=== PATIENT | female | born 1970 | race Caucasian/White ===

== ENCOUNTER 2019-04-25 06:10 | Day surgery (SDC) | payer OTHER ==
[2019-04-24 14:05] LABS: HEMATOCRIT 35.4 % (36.0-48.0); MCHC 33.9 g/dL (31.0-37.0); MCV 85.5 fL (80.0-100.0); MEAN PLATELET VOLUME 10.1 fL (7.4-10.4); RBC 4.14 10x6/uL (4.00-5.40); RDW 12.9 % (11.5-14.5); WBC 4.5 10x3/uL (4.8-10.8)
[2019-04-24 14:22] LABS: CALC OSMOLALITY 281 mosm/kg (275-300); CALCIUM 8.7 mg/dL (8.5-10.1); CARBON DIOXIDE 26.9 mmol/L (21.0-32.0); CHLORIDE - SERUM 105 mmol/L (98-107); CREATININE - SERUM 0.6 mg/dL (0.6-1.3); GLUCOSE 91 mg/dL (74-106); SODIUM 140 mmol/L (136-145); UREA NITROGEN 22 mg/dL (7-18); eGFR NON AFRICAN AMERICAN > 90 mL/min (90-120)
[~2019-04-25] VITALS: Ht 165.1 cm; Wt 58.1 kg
[~2019-04-25 06:10] MED LIST: ALLEGRA D PO; AMBIEN10 MG PO; METFORMIN HCL500 M1 PO; MOBIC7.5 MG PO; NP THYROID30 MG PO; ULTRAM50 MG PO; [UNRECOGNIZED DRUG - OTHER] PO
[2019-04-25 06:45] VITALS: BP 116/75; Ht 165.1 cm; Wt 58.1 kg
[2019-04-25] MEDS ORDERED: HYDROCODON-ACE1 EAC7 PO (11:15)
== END 2019-04-25 11:50 | disposition home or self-care (01) ==
LOC: D.OPS 06:10 → D.PAN 08:30 → D.OPS 11:00
PROVIDERS: Anesthesiology; ATTEND Podiatrist Foot & Ankle Surgery
DX: M72.2 Plantar fascial fibromatosis (principal)

== ENCOUNTER 2019-09-04 05:00 | Day surgery (SDC) | payer OTHER ==
[2019-09-01 10:48] LABS: BASOPHILS 0.2 % (0-2); EOSINOPHILS 2.2 % (0-7); HEMATOCRIT 45.6 % (36.0-48.0); HEMOGLOBIN 15.3 g/dL (12-16); IMMATURE GRANULOCYTES 0.2 % (0-5); LYMPHOCYTES 26.3 % (15-50); MCH 29.6 pg (26.0-34.0); MCHC 33.6 g/dL (31.0-37.0); MCV 88.2 fL (80.0-100.0); MEAN PLATELET VOLUME 10.4 fL (7.4-10.4); MONOCYTES 5.3 % (2-11); NEUTROPHILS 65.8 % (40-80); RBC 5.17 10x6/uL (4.00-5.40); RDW 12.5 % (11.5-14.5); WBC 5.9 10x3/uL (4.8-10.8)
[2019-09-01 10:56] LABS: PLATELET COUNT 264 10x3/uL (130-400)
[2019-09-01 11:13] LABS: CALC OSMOLALITY 277 mosm/kg (275-300); CALCIUM 9.1 mg/dL (8.5-10.1); CARBON DIOXIDE 27.1 mmol/L (21.0-32.0); CHLORIDE - SERUM 102 mmol/L (98-107); CREATININE - SERUM 0.5 mg/dL (0.6-1.3); GLUCOSE 96 mg/dL (74-106); POTASSIUM - SERUM 3.8 mmol/L (3.5-5.1); SODIUM 138 mmol/L (136-145); UREA NITROGEN 19 mg/dL (7-18); eGFR NON AFRICAN AMERICAN > 90 mL/min (90-120)
[2019-09-04] VITALS (9 sets, daily range): BP systolic 95–138; BP diastolic 50–86; Ht 162.6 cm; Wt 58.5 kg
[~2019-09-04] VITALS: Ht 162.6 cm; Wt 58.5 kg
[~2019-09-04 05:00] MED LIST changes: +CALCITONIN-SAL3.7 ML NASAL; +HYDROCODON-ACE1 EAC7 PO; +NEURONTIN 300300 MG PO; +PAMELOR10 MG PO
[2019-09-04 06:23] LABS: HCG URINE NEGATIVE (NEGATIVE)
--- NOTE | 2019-09-04 13:28 | OP ---
PATIENT NAME: SEBASTIÁN HUGO MEDICAL RECORD: [id number] :74 LOCATION:[facility].1218 ADMISSION DATE: SURGEON: JEFE DIAZ MD DATE OF OPERATION: 09/04/2019 PREOPERATIVE DIAGNOSIS: Menorrhagia. POSTOPERATIVE DIAGNOSIS: Menorrhagia. PROCEDURES: 1. Diagnostic laparoscopy. 2. Total laparoscopic hysterectomy. 3. Bilateral salpingectomy. 4. Left oophorectomy. SURGEON: Jefe Diaz MD FILM EXAMINER: Ernie ANESTHESIOLOGIST: Dr. Clarke. ANESTHESIA: General. FINDINGS: Uterus, tubes, and ovaries were unremarkable. What was visualized of the abdominal anatomy was also unremarkable. SPECIMENS REMOVED: Uterus with bilateral tubes and left ovary. SPECIMEN DISPOSITION: All specimens to pathology. ESTIMATED BLOOD LOSS: Less than or equal to 75 cc. FLUIDS: 1800 cc lactated Ringer's. URINE OUTPUT: 50 cc of clear urine. COMPLICATIONS: None. DRAIN: Roca to gravity, discontinued upon arrival to floor. INDICATIONS: The patient is a 48-year-old female with menorrhagia. The patient has a negative impact on quality of life and it interrupts events of daily living. The patient has tried conservative therapy without relief and desires definitive treatment. DESCRIPTION OF PROCEDURE: After informed consent was assured, the patient was taken to the operating room where anesthetic was obtained without difficulty. The patient was now prepped and draped in the usual sterile fashion. A uterine manipulator was placed and a Roca catheter started. An incision was made at the umbilicus to accommodate a 5-mm trocar, which was inserted without difficulty and pneumoperitoneum developed. Accessory trocars were now placed in the right and left lower quadrants. Through the left hand port, a Thunderbeat coagulation cutter was inserted and through the right hand port, a grasper was inserted. With the left tube and ovary elevated, the infundibulopelvic ligament was identified. The ureter was noted to be well below the operative field. The OPERATIVE REPORT [id number] SEBASTIÁN HUGO infundibulopelvic ligament was now compressed, coagulated, and . The dissection was carried out underneath the left ovary and tube across the round ligament and the anterior leaf of the broad ligament was opened and the bladder flap developed to the midline. The posterior leaf of the broad ligament was dissected free of the vascular bundle of the left, which was identified compressed, coagulated, and below the level of the internal os. The contralateral side was now dressed. With the right tube elevated, the Thunderbeat coagulation cutter freed the tube from its connections to the adnexa. The dissection was now carried out over the uteroovarian ligament and round ligaments. Anterior leaf of the broad ligament was dissected and the bladder flap now developed. The posterior leaf was dissected free of the vascular bundle of the right, which was identified, compressed, coagulated, and . The dissection of the uterus from the vaginal cuff began at the 3 o'clock position. The dissection was carried out from the 3-12, now 3-9. This dissection concludes from the 12-6 o'clock positions. The patient's introitus was assessed at the beginning of this procedure and was unable to adequately allow speculum to be introduced. The decision to close the cuff laparoscopically was made and an 11-mm port was placed in the right hand side. Through the right lower quadrant port, an EndoStitch was now loaded and inserted into the pelvis. Using the EndoStitch, interrupted stitches were placed across the cuff. Extracorporeal knot tying was utilized. Once the cuff has been closed, the pelvis was irrigated, irrigant removed. Pneumoperitoneum was released and all ports were removed. The skin was reapproximated with subcuticular stitch and Dermabond was applied. Sponge, lap, and needle counts were reported correct times 2 at the close of this procedure. TRANSINT:[id number] Voice Confirmation ID: [id number] DOCUMENT ID: [id number] JEFE DIAZ MD at 1328 CC: [id number] DICTATION DATE: 09/04/1935 MAINTENANCE ASSOCIATE: 09/04/19 0949 [facility] [address] [place] [address]
[2019-09-05] VITALS: BP 113/60
[2019-09-05 00:50] VITALS: BP 115/64
[2019-09-05 04:30] VITALS: BP 107/62
[2019-09-05 08:05] VITALS: BP 124/72
== END 2019-09-05 11:25 | disposition home or self-care (01) ==
LOC: D.OPS 05:00 → D.WS 10:13 → D.OPS 10:13 → D.WS 10:14 → D.OPS 09-05 11:25 → D.WS 09-05 11:25
PROVIDERS: ATTEND Obstetrics & Gynecology
DX: N92.0 Excessive and frequent menstruation with regular cycle (principal)